=== PATIENT | female | born 1950 | race Caucasian/White ===

== ENCOUNTER 2017-04-15 16:54 | Observation (INO) | payer BC ==
[~2017-04-15] VITALS: Ht 165.1 cm; Wt 90.2 kg
[~2017-04-15 16:54] MED LIST: CLARITIN10 M3 PO; CLOBETASOL EMOL45 GM TP; ERGOCALCIF50000 UNIT PO; LOSARTAN POTASS50 MG PO; MELOXICAM15 MG PO; METOPROLOL TART25 MG PO; METOPROLOL TART50 MG PO; TYLENOL EXTRA500 MG PO
[2017-04-15 19:50] LABS: BASOPHIL (%) 0.4 % (0-1); BASOPHIL COUNT 0.1 K/uL (0-0.1); EOSINOPHIL (%) 0.4 % (0-5); EOSINOPHIL COUNT 0.1 K/uL (0-0.3); HEMATOCRIT 42.9 % (36.0-46.0); HEMOGLOBIN 14.4 G/DL (11.9-15.5); IMMATURE GRANULOCYTE (%) 0.4 % (0.0-0.7); LYMPHOCYTE COUNT 3.1 K/uL (1.0-2.8); MCHC 33.6 G/DL (30.0-36.0); MCV 89.4 FL (83-99); MONOCYTE (%) 7.2 % (3-12); NEUTROPHIL (%) 68.6 % (45-76); NEUTROPHIL COUNT 9.3 K/uL (1.8-6.4); PLATELET COUNT 291 K/uL (156-360); RBC DIS.WIDTH-CV 12.6 % (11.8-14.6); RBC DIS.WIDTH-SD 41.1 % (39-53); WHITE BLOOD COUNT 13.6 K/uL (4.1-10.2)
[2017-04-15 20:22] LABS: ALBUMIN 4.1 G/DL (3.2-4.8); ALKALINE PHOSPHATASE 64 IU/L (3-129); ALT (GPT) 15 IU/L (3-49); AST (GOT) 16 IU/L (2-34); CHLORIDE 102 MEQ/L (99-109); CREATININE 0.9 MG/DL (0.6-1.3); GFR ESTIMATE (CALCULATED) > 59 mL/min/; GLUCOSE 99 mg/dL (70-99); POTASSIUM 3.5 MEQ/L (3.7-5.4); SODIUM 138 MEQ/L (136-147); TOTAL BILIRUBIN 0.8 MG/DL (0.0-1.0); TOTAL PROTEIN 6.9 G/DL (6.4-8.3); UREA NITROGEN (BUN) 24 mg/dL (9-23)
[2017-04-15 20:33] LABS: APPEARANCE CLOUDY ((CLEAR)); BILIRUBIN NEGATIVE; BLOOD NEGATIVE; COLOR AMBER ((YELLOW)); GLUCOSE (STRIP) NEGATIVE; KETONES NEGATIVE; LEUKOCYTES MODERATE; NITRITE POSITIVE; PROTEIN (STRIP) 30; SPECIFIC GRAVITY 1.029 (1.000-1.030)
[2017-04-15 21:01] LABS: EPITHELIAL CELLS 1+ /HPF; MUCUS 3+ /LPF
[2017-04-15 21:02] LABS: BACTERIA 4+ /HPF; RED BLOOD CELLS NONE SEEN /HPF (0-5); UCUL ADDED? YES; WHITE BLOOD CELLS 15-20 /HPF (0-5)
[2017-04-15] MEDS ORDERED: HYZAAR 100-21 TABLET PO (22:28)
[2017-04-15] MEDS ORDERED: HYDROCHLOROTHIA25 MG PO (22:29)
[2017-04-15] MEDS ORDERED: RANITIDINE HCL300 MG PO (22:30)
[2017-04-15] MEDS ORDERED: ARTHROTEC 501 TABLET PO (22:32)
[2017-04-15] MEDS ORDERED: ULTRAM50 MG PO (22:32)
[2017-04-15] MEDS ORDERED: BACTRIM,SEPT1 TABLET PO (22:33)
[2017-04-15] MEDS ORDERED: PREDNISONE5 MG PO (22:38)
[2017-04-16 00:48] VITALS: BP 162/70
[2017-04-16 04:33] VITALS: BP 101/55
[2017-04-16 06:04] LABS: BASOPHIL (%) 0.4 % (0-1); EOSINOPHIL (%) 1.1 % (0-5); EOSINOPHIL COUNT 0.1 K/uL (0-0.3); HEMATOCRIT 37.9 % (36.0-46.0); IMMATURE GRANULOCYTE (%) 0.3 % (0.0-0.7); LYMPHOCYTE COUNT 2.4 K/uL (1.0-2.8); MCH 29.9 PG (29.0-34.0); MCHC 32.5 G/DL (30.0-36.0); MCV 92.2 FL (83-99); MONOCYTE (%) 8.3 % (3-12); MONOCYTE COUNT 0.8 K/uL (0-0.8); NEUTROPHIL (%) 63.9 % (45-76); NEUTROPHIL COUNT 5.9 K/uL (1.8-6.4); PLATELET COUNT 245 K/uL (156-360); RBC DIS.WIDTH-CV 12.9 % (11.8-14.6); RBC DIS.WIDTH-SD 43.7 % (39-53); RED BLOOD COUNT 4.11 M/uL (3.80-5.20); WHITE BLOOD COUNT 9.3 K/uL (4.1-10.2)
[2017-04-16 06:05] LABS: HEMOGLOBIN 12.3 G/DL (11.9-15.5)
[2017-04-16 06:12] LABS: CHLORIDE 103 MEQ/L (99-109); CREATININE 0.8 MG/DL (0.6-1.3); GFR ESTIMATE (CALCULATED) > 59 mL/min/; GLUCOSE 127 mg/dL (70-99); POTASSIUM 3.4 MEQ/L (3.7-5.4); SODIUM 139 MEQ/L (136-147); UREA NITROGEN (BUN) 20 mg/dL (9-23)
[2017-04-16 08:00] VITALS: BP 126/61
[2017-04-16 15:48] VITALS: BP 145/61
[2017-04-16] MEDS ORDERED: ROCEPHIN2 GM/50 ML IV (16:56)
== END 2017-04-16 18:48 | disposition home or self-care (01) ==
LOC: EME 16:54 → EDOF 22:05 → 4SOUTH 22:05 → CANRESERV 22:09 → ENRESERV 22:09 → 4SOUTH 04-16 00:32
PROVIDERS: Emergency Medicine; Hospitalist
DX: N10 Acute pyelonephritis (principal); B96.20 Unspecified Escherichia coli [E. coli] as the cause of diseases classified elsewhere; M35.3 Polymyalgia rheumatica; I10 Essential (primary) hypertension; E78.5 Hyperlipidemia, unspecified; R32 Unspecified urinary incontinence; Z79.52 Long term (current) use of systemic steroids; M19.90 Unspecified osteoarthritis, unspecified site; Z87.891 Personal history of nicotine dependence; Z90.49 Acquired absence of other specified parts of digestive tract; Z90.710 Acquired absence of both cervix and uterus; Z82.49 Family history of ischemic heart disease and other diseases of the circulatory system; Z80.0 Family history of malignant neoplasm of digestive organs
CPT/HCPCS: 74177; 80048; 80053; 81003; 83605; 85025; 87040; 87077; 87086; 87186; 99281; 99285; G0378; J0692; J0696; J1650; J7030; J7512